=== PATIENT | female | born 1985 | race Caucasian/White ===

== ENCOUNTER 2016-11-22 03:54 | Emergency (ER) | payer BC ==
[2016-11-22 04:39] LABS: BASOPHIL % 0.5 % (0-2); PLATELET COUNT 181 x10^3mcL (130-400); RED CELL DISTRIBUTION WIDTH 14.4 % (11.5-14.5)
[2016-11-22 04:47] LABS: CALCIUM 9.1 mg/dL (8.5-10.1); CARBON DIOXIDE 30.3 mmol/L (21-32); CHLORIDE SERUM 104 mmol/L (98-107); CREATININE SERUM 0.8 mg/dL (0.6-1.0); GFR1 > 60 mL/min; GLUCOSE SERUM 99 mg/dL (74-106); POTASSIUM SERUM 3.7 mmol/L (3.5-5.1); SODIUM SERUM 140 mmol/L (136-145)
[2016-11-22 04:52] LABS: UA SPECIFIC GRAVITY 1.025 (1.005-1.035); microscopic required? YES; urine erythrocyte NEGATIVE (NEGATIVE)
[2016-11-22 06:55] VITALS: BP 135/85
== END 2016-11-22 06:55 | disposition home or self-care (01) ==
LOC: ED 03:54
PROVIDERS: Emergency Medicine
DX: N20.1 Calculus of ureter (principal); Z88.8 Allergy status to other drugs, medicaments and biological substances; Z87.442 Personal history of urinary calculi
CPT/HCPCS: J1885; J2270; J2405; J7030; Q0092

== ENCOUNTER 2018-01-08 19:11 | Emergency (ER) | payer SELFPAY ==
[~2018-01-08] VITALS: Ht 154.9 cm; Wt 59.6 kg
[2018-01-08 21:11] LABS: CALCIUM 8.7 mg/dL (8.5-10.1); CARBON DIOXIDE 32.1 mmol/L (21-32); CHLORIDE SERUM 102 mmol/L (98-107); CREATININE SERUM 0.8 mg/dL (0.6-1.0); GFR1 > 60 mL/min; GLUCOSE SERUM 84 mg/dL (74-106); POTASSIUM SERUM 3.8 mmol/L (3.5-5.1); SODIUM SERUM 140 mmol/L (136-145)
[2018-01-08 21:15] LABS: ALBUMIN 3.9 g/dL (3.4-5.0); ALKALINE PHOSPHATASE 67 U/L (46-116); ALT/SGPT 59 U/L (14-59); AMYLASE 68 U/L (25-115); AST/SGOT 21 U/L (15-37); BILIRUBIN TOTAL 0.45 mg/dL (0.20-1.00); LIPASE 216 IU/L (73-393); TOTAL PROTEIN, SERUM 7.5 g/dL (6.4-8.2)
[2018-01-08 21:34] LABS: microscopic required? NO
[2018-01-08 21:39] LABS: urine erythrocyte NEGATIVE (NEGATIVE)
[2018-01-08 22:55] VITALS: BP 112/72
== END 2018-01-08 22:55 | disposition home or self-care (01) ==
LOC: ED 19:11
PROVIDERS: Specialist
DX: N20.0 Calculus of kidney (principal); F41.9 Anxiety disorder, unspecified; Z87.442 Personal history of urinary calculi
CPT/HCPCS: J2405; J3010; J7030; Q0092